=== PATIENT | female | born 1990 | race Caucasian/White ===

== ENCOUNTER 2022-03-29 08:58 | Emergency (ER) | payer MEDICAID ==
[~2022-03-29] VITALS: Ht 160 cm; Wt 71.0 kg
[2022-03-29] MEDS ORDERED: METHOCARBAMOL 500MG TABLET PO ONE (10:30)
[2022-03-29] MEDS ORDERED: KETOROLAC 60MG/2ML VIAL IM ONE (10:30)
[2022-03-29 10:41] VITALS: BP 125/84
[2022-03-29] MEDS ORDERED: METH-773 MT (12:22)
[2022-03-29] MEDS ORDERED: NAPR-681 MT (12:22)
== END 2022-03-29 12:49 | disposition home or self-care (01) ==
LOC: ER 08:58
DX: M54.2 Cervicalgia (principal); M25.511 Pain in right shoulder; Z98.890 Other specified postprocedural states; V43.52XA Car driver injured in collision with other type car in traffic accident, initial encounter; Y93.89 Activity, other specified; Y92.488 Other paved roadways as the place of occurrence of the external cause
CPT/HCPCS: 73030; 81025; 96372; 99283; J1885